=== PATIENT | male | born 1960 | race Caucasian/White ===

== ENCOUNTER 2021-01-08 09:47 | Inpatient (IN) ==
[2021-01-08] MEDS ORDERED: ASPIRIN CHEW 324 MG PO STA (09:55)
[2021-01-08] MEDS ORDERED: fentaNYL citrate 100 MCG/2 ML VIAL ONE ×2 (09:59→10:54)
[2021-01-08] MEDS ORDERED: niCARdipine HCL INJ 2.5 MG/ML 10 ML AMP ONE (09:59)
[2021-01-08] MEDS ORDERED: MIDAZOLAM HCL 1 MG/ML 2ML VIAL ONE ×3 (09:59→11:01)
[2021-01-08] MEDS ORDERED: HEPARIN (PORCINE) 1000 UNIT/ML 10 ML (CATH LAB USE ONLY) ONE ×2 (09:59→11:24)
--- NOTE | 2021-01-08 09:59 | Emergency Department Note ---
Impression & Plan ST elevation (STEMI) myocardial infarction, Chest pain ED Provider Note NAME: GAMA DICKINSON AGE: 60 SEX: M : 1960 ARRIVES VIA: Walk-In INFORMANT: Patient, ED PROVIDER(S): Bret Hoff DO CHIEF COMPLAINT: Chest pain HPI: The patient is a 60-year-old male who presented to the emergency department through triage for an evaluation of chest pain. The patient started having chest pain approxi-1 hour prior to arrival. The patient states that he has substernal chest pain that he describes as a pressure. He does have a history of cardiac disease and has had 5 stents approximately 6 years ago. The patient normally lives in [place] and is here for work. All of his cardiac work was done near his home in [place]. He states that he has had no problems with his cardiac condition since the stenting. He does have a history of a DVT which he was treated for. He had a procedure in September of last year which resulted in a DVT. He finished taking the Xarelto approximately 2 days ago. He denies having any shortness of breath. He denies having any lower extremity swelling or fever. He denies having any cough or exposure to COVID-19. The patient states his pain is approximately 7 out of 10 and worse with exertion. The patient did not take any medications for this pain prior to coming to the emergency department. Otherwise he states he has been compliant with his outpatient medication regimen. ROS: See above HPI for pertinent positives & negatives. A total of 10 systems reviewed and were otherwise negative. PAST MEDICAL HISTORY: See Below PAST SURGICAL HISTORY: See Below FAMILY HISTORY: See Below SOCIAL HISTORY: See Below HOME MEDICATIONS: See Below ALLERGIES: See Below VITALS: See Below PHYSICAL EXAMINATION: GENERAL: The patient is awake and alert. He is somewhat anxious appearing. EYES: The conjunctivae are clear. The pupils are round and reactive. EARS, NOSE, MOUTH AND THROAT: The nose is without any evidence of any deformity. NECK: The neck is nontender and supple. RESPIRATORY: Normal respiratory effort is noted there is no evidence of wheezing rhonchi or rales CARDIOVASCULAR: Regular rate and rhythm noted there no murmurs rubs or gallops normal S1 normal S2. GASTROINTESTINAL: The abdomen is soft. Abdomen is nontender. MUSCULOSKELETAL/EXTREMITIES: There is no evidence of gross deformity full range of motion is noted in the hips and shoulders. SKIN: There is no obvious evidence of any rash. There is no calf tenderness elicited. NEUROLOGIC: Patient is awake alert and oriented x3. MEDICAL DECISION MAKING: The patient is a 60-year-old male who presented to the emergency department for an evaluation of chest pain. The patient has a history of coronary artery disease and has had multiple coronary artery stents in the past. The patient started having anterior chest pain. He does have a history of coronary artery disease and is prescribed nitroglycerin but has never used it before so he did not feel comfortable using it. The patient presented to the emergency department and on his initial EKG was found to have findings consistent with an acute inferior wall MT. The patient was made a heart alert immediately. The patient was treated with aspirin in the emergency department. I discussed the patient's condition with him. He was agreeable to evaluation by the cover stitch machine operator. I discussed his case with the cover stitch machine operator who evaluated the patient at bedside and felt he was a good candidate for immediate cardiac catheterization. The patient was transferred directly to the Statistical Developer for further intervention. Triage Nursing notes reviewed. Prior medical records reviewed Vital Signs: reviewed and remarkable for no significant abnormalities Differential diagnosis: Cardiac ischemia, aortic dissection, pulmonary embolism, pneumothorax, pneumonia, pericarditis, myocarditis, esophageal rupture, GERD, cholecystitis, pancreatitis, musculoskeletal, as well as other pathologies. ER treatment provided: See below Diagnostics interpreted by me: ECG: EKG was obtained in the emergency department. My interpretation is normal sinus rhythm at 74 bpm. There was no ectopy. There was acute ST segment elevation in the inferior leads. There is also reciprocal changes in the high lateral leads. There is also ST depression noted in the anterior leads. I feel this is consistent with an inferior posterior wall MT. No previous tracing was available. Cardiac Monitoring: An order was placed for continuous cardiac monitoring. The monitor shows a rate of 89 bpm with sinus rhythm. Laboratory studies: As stated above and show below. Imaging studies: See below Consultation(s): 1005: Dr. Busby presented to the emergency department because of the heart alert. I discussed the patient's condition at bedside. 1040: I discussed this case with Dr. Baxter who is on-call for the [facility]. ED COURSE: Procedures: none PDMP:reviewed and no issues Critical Care: I have personally spent greater than 35 minutes of critical care time in the direct management of this patient. This includes bedside care, interpretation of diagnostic studies, and testing, discussion with consultants, patient, and family members, and other required patient management activities. This 35 minutes is in excess of all separately billable procedures. Past Med/Surg History Medical History DVT (deep venous thrombosis) High cholesterol Hypothyroid NSTEMI (non-ST elevated myocardial infarction) Surgical History History of ventral hernia repair Stented coronary artery Social History Smoking Status: Never smoker Hx Alcohol Use: Yes Alcohol type: hard liquor Alcohol Intake Frequency: 2-4 x/Month Hx Substance Use: No Preferred Language: Norwegian Communication Ability: Effective Silverware Supervisor Required: No Beliefs That Will Affect Care: None Current Living Situation: Significant Other Other Information That Helps Us Care for You: No Feels Safe at Home: Yes Assistive Devices: None Allergies Allergies Allergy/AdvReac Type Severity Reaction Status Date / Time No Known Allergies Allergy Unverified 05/19/20 10:33 Home Meds Home Medications Medication Instructions Recorded Confirmed aspirin [Aspir-81] 81 mg PO DAILY@149905/19/20 05/19/20 atorvastatin 40 mg PO DAILY@149905/19/20 05/19/20 metoprolol tartrate 25 mg PO DAILY@149905/19/20 05/19/20 Previous Rx's Medication Instructions Recorded acetaminophen-codeine 1 tab PO Q6H PRN #14 tab 05/19/20 [Tylenol-Codeine #3] Results & Data (ED) Vital Signs Vital Signs - 24 hr 01/08/21 09:50 01/08/21 12:30 Temperature 36.3 C L Temperature Source Temporal Artery Scan Pulse Rate 72 Pulse Rate [Apical] 103 H Pulse Rhythm [Apical] Regular Pulse Strength [Apical] Normal Respiratory Rate 18 16 Respiratory Depth Normal Respiratory Pattern Regular Blood Pressure 146/84 H Blood Pressure [Left Arm] 103/75 Blood Pressure Mean 104 Blood Pressure Mean [Left Arm] 84 Blood Pressure Position [Left Arm] Lying Pulse Oximetry 99 97 Oxygen Delivery Method Room Air Sepsis Recent Fever Within 48 Hours No Sepsis New/Unexplained Change in Mental Status N/A Sepsis Action Taken by Nursing No Action Required Home Medications Current Medication List: was personally reviewed by me Laboratory Data Attestation: I reviewed the patient's lab results. Result diagrams: 01/08/21 10:05 01/08/21 10:05 Lab Results 01/08/21 01/08/21 01/08/21 Range/Units 09:57 09:57 10:05 WBC 10.24 (4.8-10.8) K/uL RBC 5.18 (4.7-6.1) M/uL Hgb 15.0 (14.0-18.0) g/dL Hct 44.5 (42-52) % MCV 85.9 (80-100) fL MCH 29.0 (25-34) pg MCHC 33.7 (32-36) g/dL RDW Std Deviation 44.5 (36.4-46.3) fL RDW Coeff of Giovanni 14.0 (11.5-14.5) % Plt Count 274 (130-400) K/uL MPV 9.3 (7.4-10.4) fL Immature Gran % (Auto) 0.2 % Neut % (Auto) 39.9 % Lymph % (Auto) 43.8 % Sterling % (Auto) 13.0 % Eos % (Auto) 2.7 % Baso % (Auto) 0.4 % Neut # (Auto) 4.09 (1.4-6.5) K/uL Lymph # (Auto) 4.48 H (1.2-3.4) K/uL Sterling # (Auto) 1.33 H (0.11-0.59) K/uL Eos # (Auto) 0.28 (0-0.5) K/uL Baso # (Auto) 0.04 (0-0.2) K/uL Immature Gran # (Auto) 0.02 (0.00-0.02) K/uL Activ Coag Time Kaolin (94-140) SECONDS Sodium (136-145) mmol/L Potassium (3.5-5.1) mmol/L Chloride (98-107) mmol/L Carbon Dioxide (21-32) mmol/L Anion Gap (3-11) BUN (7-18) mg/dl Creatinine (0.6-1.4) mg/dl Est Cr Clr Drug Dosing ml/min Est GFR ( Amer) Est GFR (Non-Af Amer) BUN/Creatinine Ratio (10-20) Glucose (70-99) mg/dl Calcium (8.5-10.1) mg/dl Magnesium (1.8-2.4) mg/dl Total Bilirubin (0.2-1) mg/dl AST (15-37) U/L ALT (12-78) U/L Alkaline Phosphatase (45-117) U/L Total Creatine Kinase (39-308) U/L CK-MB (CK-2) (0.5-3.6) ng/ml CK/CKMB % Calc (0-3.0) Troponin I (0-0.045) ng/ml Total Protein (6.4-8.2) gm/dl Albumin (3.4-5.0) gm/dl Globulin (2.5-4.0) gm/dl Albumin/Globulin Ratio (0.9-2) Lipase (73-393) U/L TSH (0.300-4.500) uIu/ml Free T4 (0.8-1.6) ng/dl COVID-19 Eval Order [facility]Rsv at [facility] SARS-CoV-2 (PCR) NEGATIVE (Negative) Influenza Type A (PCR) Negative (Neg) Influenza Type B (PCR) Negative (Neg) RSV (RT-PCR) Negative (Neg) 01/08/21 01/08/21 01/08/21 Range/Units 10:05 10:40 11:47 WBC (4.8-10.8) K/uL RBC (4.7-6.1) M/uL Hgb (14.0-18.0) g/dL Hct (42-52) % MCV (80-100) fL MCH (25-34) pg MCHC (32-36) g/dL RDW Std Deviation (36.4-46.3) fL RDW Coeff of Giovanni (11.5-14.5) % Plt Count (130-400) K/uL MPV (7.4-10.4) fL Immature Gran % (Auto) % Neut % (Auto) % Lymph % (Auto) % Sterling % (Auto) % Eos % (Auto) % Baso % (Auto) % Neut # (Auto) (1.4-6.5) K/uL Lymph # (Auto) (1.2-3.4) K/uL Sterling # (Auto) (0.11-0.59) K/uL Eos # (Auto) (0-0.5) K/uL Baso # (Auto) (0-0.2) K/uL Immature Gran # (Auto) (0.00-0.02) K/uL Activ Coag Time Kaolin 279 H 252 H (94-140) SECONDS Sodium 136 (136-145) mmol/L Potassium 3.3 L (3.5-5.1) mmol/L Chloride 102 (98-107) mmol/L Carbon Dioxide 26 (21-32) mmol/L Anion Gap 8.0 (3-11) BUN 10 (7-18) mg/dl Creatinine 1.30 (0.6-1.4) mg/dl Est Cr Clr Drug Dosing 72.4 ml/min Est GFR ( Amer) 69.7 Est GFR (Non-Af Amer) 60.1 BUN/Creatinine Ratio 7.6 L (10-20) Glucose 147 H (70-99) mg/dl Calcium 9.5 (8.5-10.1) mg/dl Magnesium 2.1 (1.8-2.4) mg/dl Total Bilirubin 0.7 (0.2-1) mg/dl AST 24 (15-37) U/L ALT 33 (12-78) U/L Alkaline Phosphatase 113 (45-117) U/L Total Creatine Kinase 113 (39-308) U/L CK-MB (CK-2) 1.2 (0.5-3.6) ng/ml CK/CKMB % Calc 1.1 (0-3.0) Troponin I < 0.015 (0-0.045) ng/ml Total Protein 7.6 (6.4-8.2) gm/dl Albumin 3.9 (3.4-5.0) gm/dl Globulin 3.7 (2.5-4.0) gm/dl Albumin/Globulin Ratio 1.1 (0.9-2) Lipase 82 (73-393) U/L TSH 7.730 H (0.300-4.500) uIu/ml Free T4 1.07 (0.8-1.6) ng/dl COVID-19 Eval Order SARS-CoV-2 (PCR) (Negative) Influenza Type A (PCR) (Neg) Influenza Type B (PCR) (Neg) RSV (RT-PCR) (Neg) Administered Medications Sodium Chloride (Nss 1000ml) 1,000 mls @ 100 mls/hr IV .Q10H PLACIDO Stop: 01/08/21 20:14 Last Admin: 01/08/21 14:27 Dose: 100 mls/hr Documented by: [id number] Dopamine HCl/Dextrose (Dopamine / D5w) 400 mg in 250 mls @ 18.863 mls/hr IV .[id number] PLACIDO; Protocol Stop: 02/07/21 13:44 Last Admin: 01/08/21 14:27 Dose: 5 mcg/kg/min, 18.9 mls/hr Documented by: [id number] Cosigned by: [id number] Promethazine HCl 12.5 mg/ (Sodium Chloride) 50.5 mls @ 202 mls/hr IV Q6H PRN PRN Reason: Nausea And Vomiting Stop: 02/07/21 13:51 Last Admin: 01/08/21 14:42 Dose: 202 mls/hr Documented by: [id number] Discontinued Medications Aspirin (Aspirin Chew 324 Mg) 324 mg PO NOW STA Stop: 01/08/21 09:56 Last Admin: 01/08/21 10:04 Dose: 324 mg Documented by: [id number] Atropine Sulfate (Atropine Sulfate 0.1 Mg/Ml 10ml Syr) Confirm Administered Dose 1 mg IV .STK-MED ONE Stop: 01/08/21 10:23 Last Admin: 01/08/21 11:54 Dose: 0.5 mg Documented by: [id number] Dopamine HCl/Dextrose (Dopamine 400mg / 250ml D5w (Statistical Developer Use Only)) Confirm Administered Dose 400 mg .ROUTE .STK-MED ONE Stop: 01/08/21 10:49 Last Admin: 01/08/21 11:55 Dose: 5 mcg.per.kg Documented by: [id number] Fentanyl Citrate (Fentanyl Citrate 100 Mcg/2 Ml Vial) Confirm Administered Dose 100 mcg .ROUTE .STK-MED ONE Stop: 01/08/21 10:00 Last Admin: 01/08/21 11:59 Dose: 150 mcg Documented by: [id number] Fentanyl Citrate (Fentanyl Citrate 100 Mcg/2 Ml Vial) Confirm Administered Dose 100 mcg .ROUTE .[facility]-MED ONE Stop: 01/08/21 10:55 Last Admin: 01/08/21 11:55 Dose: Not Given Documented by: [id number] Heparin Sodium (Porcine) (Heparin (Porcine) 1000 Unit/Ml 10 Ml (Statistical Developer Use Only)) Confirm Administered Dose 10,000 units .ROUTE .[facility]-MED ONE Stop: 01/08/21 10:00 Last Admin: 01/08/21 11:58 Dose: 12,000 units Documented by: [id number] Heparin Sodium (Porcine) (Heparin (Porcine) 1000 Unit/Ml 10 Ml (Statistical Developer Use Only)) Confirm Administered Dose 10,000 units .ROUTE .[facility] ONE Stop: 01/08/21 11:25 Last Admin: 01/08/21 11:55 Dose: Not Given Documented by: [id number] Heparin Sodium/Sodium Chloride (Heparin In Nss Infusion 1000 Unit/500 Ml (2 U/Ml) Bag) Confirm Administered Dose 3,000 units IV .[facility] ONE Stop: 01/08/21 10:01 Last Admin: 01/08/21 11:54 Dose: 3,000 units Documented by: [id number] Midazolam HCl (Midazolam Hcl 1 Mg/Ml 2ml Vial) Confirm Administered Dose 2 mg .ROUTE .[facility] ONE Stop: 01/08/21 10:00 Last Admin: 01/08/21 11:58 Dose: 5 mg Documented by: [id number] Midazolam HCl (Midazolam Hcl 1 Mg/Ml 2ml Vial) Confirm Administered Dose 2 mg .ROUTE .[facility] ONE Stop: 01/08/21 10:36 Last Admin: 01/08/21 11:56 Dose: Not Given Documented by: [id number] Midazolam HCl (Midazolam Hcl 1 Mg/Ml 2ml Vial) Confirm Administered Dose 2 mg .ROUTE .[facility]-MED ONE Stop: 01/08/21 11:02 Last Admin: 01/08/21 11:55 Dose: Not Given Documented by: [id number] Nicardipine HCl (Nicardipine Hcl Inj 2.5 Mg/Ml 10 Ml Amp) Confirm Administered Dose 25 mg .ROUTE .[facility]-MED ONE Stop: 01/08/21 10:00 Last Admin: 01/08/21 11:54 Dose: 25 mg Documented by: [id number] Nitroglycerin/Dextrose (Nitroglycerin/D5w 100mcg/Ml 20ml Syr) Confirm Administered Dose 2,000 mcg .ROUTE .[facility] ONE Stop: 01/08/21 10:01 Last Admin: 01/08/21 11:54 Dose: 2,000 mcg Documented by: [id number] Ondansetron HCl (Ondansetron Inj 2 Mg/Ml 2 Ml Vial) Confirm Administered Dose 4 mg .ROUTE .[facility] ONE Stop: 01/08/21 12:38 Last Admin: 01/08/21 12:39 Dose: 4 mg Documented by: [id number] Ticagrelor (Ticagrelor 90 Mg Tab) Confirm Administered Dose 180 mg PO .[facility] ONE Stop: 01/08/21 12:08 Last Admin: 01/08/21 14:31 Dose: Not Given Documented by: [id number] Discharge Plan Visit Data Chief Complaint: Chest Pain Stated Complaint: CHEST PAIN, NAUSEA, SWEATING, Hx OF STENTS ED Provider: Bret Hoff Discharge Problem: ST elevation (STEMI) myocardial infarction, Chest pain Patient Disposition: Admitted As Inpatient Condition: Good Discharge Instructions Interventions: ED Discharge Assessment Last Done: 01/08/21 10:16 Discharge Problem: ST elevation (STEMI) myocardial infarction Qualifiers: Involved coronary artery: unspecified coronary artery Qualified Code(s): I21.3 - ST elevation (STEMI) myocardial infarction of unspecified site Chest pain Qualifiers: Chest pain type: unspecified Qualified Code(s): R07.9 - Chest pain, unspecified
[2021-01-08] MEDS ORDERED: NITROGLYCERIN/D5W 100MCG/ML 20ML SYR ONE (10:00)
[2021-01-08 10:14] LABS: Basophils # (auto) 0.04 K/uL (0-0.2); Basophils % (auto) 0.4 %; Eosinophils # (auto) 0.28 K/uL (0-0.5); Eosinophils % (auto) 2.7 %; Hematocrit (blood only) 44.5 % (42-52); Immature Granulocytes # (auto) 0.02 K/uL (0.00-0.02); Immature Granulocytes % (auto) 0.2 %; Lymphocytes # (auto) 4.48 K/uL (1.2-3.4); Lymphocytes % (auto) 43.8 %; Mean Corpuscular Hgb Conc 33.7 g/dL (32-36); Mean Corpuscular Volume 85.9 fL (80-100); Mean Platelet Volume 9.3 fL (7.4-10.4); Monocytes # (auto) 1.33 K/uL (0.11-0.59); Neutrophils # (auto) 4.09 K/uL (1.4-6.5); Neutrophils % (auto) 39.9 %; Platelet Count 274 K/uL (130-400); RDW Standard Deviation 44.5 fL (36.4-46.3); Red Blood Count 5.18 M/uL (4.7-6.1); White Blood Count 10.24 K/uL (4.8-10.8)
[2021-01-08] MEDS ORDERED: ATROPINE SULFATE 0.1 MG/ML 10ML SYR IV ONE (10:22)
[2021-01-08 10:33] LABS: Alanine Aminotransferase 33 U/L (12-78); Albumin Level 3.9 gm/dl (3.4-5.0); Aspartate Aminotransferase 24 U/L (15-37); BUN Creatinine Ratio 7.6 (10-20); Blood Urea Nitrogen 10 mg/dl (7-18); Calcium 9.5 mg/dl (8.5-10.1); Carbon Dioxide 26 mmol/L (21-32); Chloride 102 mmol/L (98-107); Creatinine Clr Calc Pharmacy 72.4 ml/min; Est GFR (African American) 69.7; Est GFR (Non-African American) 60.1; Glucose 147 mg/dl (70-99); Lipase 82 U/L (73-393); Magnesium 2.1 mg/dl (1.8-2.4); Potassium 3.3 mmol/L (3.5-5.1); Sodium 136 mmol/L (136-145)
[2021-01-08 10:44] LABS: Albumin Globulin Ratio 1.1 (0.9-2); Alkaline Phosphatase 113 U/L (45-117); Bilirubin,Total 0.7 mg/dl (0.2-1); Creatine Kinase 113 U/L (39-308); Creatine Kinase MB 1.2 ng/ml (0.5-3.6); Globulin 3.7 gm/dl (2.5-4.0); Total Protein 7.6 gm/dl (6.4-8.2); Troponin I < 0.015 ng/ml (0-0.045)
[2021-01-08 10:45] LABS: Influenza A virus by PCR Negative (Neg); Influenza B virus by PCR Negative (Neg); RSV by PCR Negative (Neg); SARS CoV2 RNA(COVID-19) InHosp NEGATIVE (Negative)
[2021-01-08] MEDS ORDERED: DOPamine 400MG / 250ML D5W (Cath Lab Use ONLY) ONE (10:48)
--- NOTE | 2021-01-08 10:49 | History & Physical Report ---
Date of Service January 08, 2021 Assessment & Plan (1) ST elevation (STEMI) myocardial infarction: Patient was taken from the ER directly to the Assistant Professor Of Music where he appears to have complete occlusion of the right coronary artery intervention undertaken by Dr. Enrico Busby post procedure will be ICU. Patient continue on antiplatelet therapy (Brilinta and aspirin per Dr Busby) And atorvastatin. Blood pressure prohibits initiation of beta-luis this will be started on this clinically as possible For now patient is on low-dose dopamine post procedure expected off once his blood pressure stabilizes. Patient will have A1c and lipids checked trending troponins echocardiography (2) Hypokalemia: will give K riders, and give a dose of magnesium check magnesium in the morning 11-year-old female (3) DVT prophylaxis: once out of post pci protocol, will consider chemoprophylaxis History of Present Illness Primary Care Provider: Pt is from out of town he presented as a heart alert chest pain 1 hour prior to arrival and having inferior ST elevation., was taken emergently to the laborer vegetable farm for concern for IWMI, initial troponin was negative. Patient has known coronary disease with significant stents x5 6 years prior. Patient is here for work he usually lives in [place]. Judy that DVT post procedure finishing 2 months of Xarelto therapy 2 days prior. Pt did require some post procedure dopamine to sustain blood pressure. otherwise he has some nausea. Allergies Allergy/AdvReac Type Severity Reaction Status Date / Time No Known Allergies Allergy Unverified 05/19/20 10:33 Home Medications Medication Instructions Recorded Confirmed Type acetaminophen-codeine 1 tab PO Q6H PRN #14 tab 05/19/20 Rx [Tylenol-Codeine #3] aspirin [Aspir-81] 81 mg PO DAILY@1500 05/19/20 05/19/20 History atorvastatin 40 mg PO DAILY@1500 05/19/20 05/19/20 History metoprolol tartrate 25 mg PO DAILY@1500 05/19/20 05/19/20 History Past Med/Surg History Medical History DVT (deep venous thrombosis) High cholesterol Hypothyroid NSTEMI (non-ST elevated myocardial infarction) Surgical History History of ventral hernia repair Stented coronary artery Social History Smoking Status: Never smoker Hx Alcohol Use: Yes Alcohol type: hard liquor Alcohol Intake Frequency: 2-4 x/Month Hx Substance Use: No Preferred Language: Greek Communication Ability: Effective Dope Heater Required: No Beliefs That Will Affect Care: None Current Living Situation: Significant Other Other Information That Helps Us Care for You: No Feels Safe at Home: Yes Assistive Devices: None Review of Systems Review of Systems: Mild distress and fatigue no headache, blurry or double vision no speech or swallowing issues Prehospital chest pain no shortness of breath, cough or wheezes no abdominal pain,does have mild nausea without vomiting no dysuria, hematuria or frequency no focal joint pain or swelling no back pain, CVA tenderness or radicular pain no bruising, bleeding or rashes no focal signs of weakness or numbness or altered sensation no complaints of anxiety or depression.. Physical Exam Physical Exam: The patient appeared well nourished and normally developed. Vital signs as documented. Head exam is normocephalic atraumatic no scleral icterus Neck is without JVD, thyromegaly, or carotid bruits. Lungs are clear to auscultation, no focal loss of breath sounds Cardiac exam, Rhythm is regular.. No murmurs, rubs or gallops. Abdominal exam reveals normal bowel sounds, soft non tender, no masses Extremities are with the T band in place on his right hand there is some bruising to his thenar eminence there is good sensation and capillary refill distally Neurologic exam is alert and oriented, no focal loss of strength or sensation Skin is with only bruises as described above Psychologically is without concerns for anxiety or depression Results & Data Results & Data ([facility]) Vital Signs (Past 12 Hours) Vital Signs Temp Pulse Resp BP Pulse Ox 01/08/21 09:50 97.3 F L 72 18 146/84 H 99 PG Care Time/CCT Total # of Minutes Spent Total Time Spent with Patient: Total time spent is greater than 50% in coordination of care (as documented) at patient's floor/unit and/or counseling patient: Coding Level of Care Code 57559 Initial Inpt Care Lvl [address] elevation (STEMI) myocardial infarction I21.3 Hypokalemia E87.6 DVT prophylaxis Z29.9
[2021-01-08 10:56] LABS: T4 Free Thyroxine 1.07 ng/dl (0.8-1.6)
[2021-01-08] MEDS ORDERED: TICAGRELOR 90 MG TAB PO ONE (12:07)
[2021-01-08] MEDS ORDERED: ONDANSETRON INJ 2 MG/ML 2 ML VIAL ONE (12:37)
[2021-01-08] MEDS ORDERED: ICU PROTOCOL FOR HYPERGLYCEMIA PRN ×2 (12:40→13:37)
[2021-01-08] MEDS ORDERED: NITROGLYCERIN SL 0.4 MG/TAB TAB SL PRN (12:40)
[2021-01-08] MEDS ORDERED: ACETAMINOPHEN 325 MG TAB PO PRN (12:40)
[2021-01-08] MEDS ORDERED: ONDANSETRON INJ 2 MG/ML 2 ML VIAL IV PRN (12:40)
[2021-01-08] MEDS ORDERED: SODIUM CHLORIDE 0.9% 1000ML 1,000 ML IV SCH (12:45)
[2021-01-08] MEDS ORDERED: STAT IV Infusion **Titration per Protocol STA ×2 (12:50→13:37)
--- NOTE | 2021-01-08 12:52 | Pre Anesthesia Assessment ---
Date of Service January 08, 2021 Pre Sedation Assessment Vital Signs Temp Pulse Resp BP Pulse Ox 01/08/21 09:50 97.3 F L 72 18 146/84 H 99 Cardiovascular RRR, no murmur, no edema Respiratory normal respiratory effort, lungs clear to auscultation Pre-Sedation Airway Assessment Smoking Status: Never smoker Hx Sleep Apnea: No Hx Difficult Intubation: No Short, Thick Neck: No Thyromental Distance: > or= 3.5 Finger Breadths Oral Cavity: + WNL Mallampati Class: III ASA: ASA3 Procedure Planning Contraindications for Sedation: none Current Medications Reviewed: Yes Notes The planned sedation has been discussed with the patient. Informed Consent was obtained. I have identified the patient, determined the appropriateness of sedation and have assessed the patient immediately prior to the procedure. All medicine(s) and interventions are by my order.
--- NOTE | 2021-01-08 12:52 | Post Anesthesia Assessment ---
Date of Service January 08, 2021 Post Sedation Assessment Vital Signs Temp Pulse Pulse Resp BP BP Pulse Ox 01/08/21 12:30 103 H 16 103/75 97 01/08/21 09:50 97.3 F L 72 18 146/84 H 99 Recovery Score Activity: Moves 4 extremities Respiration: Deep Breath/Cough Circulation: +/-20% PreAnes Value Consciousness: Fully Awake Oxygen Saturation: > 92% On Room Air Post Anesthesia Score: 10 Discharge Sedation Level of Care: Fast Track Phase II Post Sedation Plan On clinical assessment, the patient appears to have tolerated the sedation without complications. Patient is recovering as anticipated. Patient will continue to be monitored by nursing and may be discharged when sedation discharge criteria are met per below protocol. Upon Completions of procedure up to 15 minutes continue every 5 minute vital signs and the P.A.R. score; then discharge to a Phase I or Fast Track to Phase II per the following guidelines: * Discharge Patient to appropriate Phase II area if PAR is 8 or greater or return to pre- procedure baseline. The post - procedure orders will be as directed. * If PAR score is less than 8 or not return to pre-procedure baseline then patient will follow Phase I monitoring till PAR is reached for Phase II. The Phase I may be done in procedure room or may call to secure a Phase I area. * If naloxone or flumazenil are used for reversal, hold in Phase I for con tinued monitoring from when last reversal dose was given for a minimum of 60 minutes or longer pending the nurse and/or physician discretion of patient condition before discharge to Phase II. Please call the Sedation Physician to re-evaluate and complete post-note for discharge to Phase II area. Do NOT discharge from procedure sedation or Phase 1 until post- sedation evaluation note is complete by procedure /sedation MD Sedation Discharge Instructions to be given to the patient at discharge to home.
--- NOTE | 2021-01-08 12:55 | Post Operative Brief Note ---
Cardiology Brief Post Op Date of Surgery January 08, 2021 Pre & Post Diagnosis Coronary artery disease Procedure Primary PCI for inferior STEMI Director Of Distance Learning Enrico Busby MD Thread Milling Machine Set Up Operator Madeleine Marin Estimated Blood Loss 30 Findings Consistent with Post-Op Diagnosis Distal RCA occlusion, in-stent thrombosis 70% proximal to mid calcified RCA LM - no significant disease LAD - 50-60% proximal stent in-stent restenosis, 50% mid segment disease extending into proximal aspect of prior mid stent. LCx - 40% mid Procedure complicated by proximal to mid RCA dissection and thrombus to proximal R-PDA. Transient hypotension requiring dopamine. Successful PCI of proximal to mid RCA with single MARBIN (3.5 x 38 [place]; post- dilated with 4.0 NC). Successful PCI of distal RCA in-stent thrombosis with single MARBIN (3.0 x 22 [place]). Fluids -- Specimens Specimen Description: -- Anesthesia Type RN Sedation Complications none Disposition Accompanied Patient To Recovery: Yes Disposition: Recovery Room Overlapping Procedure I was present for: the critical portions of procedure. I was immediately available: during the entire case. Back up surgeon: was not required during procedure.
[2021-01-08] MEDS ORDERED: METOPROLOL TARTRATE 1 MG/ML VIAL IV PRN (13:37)
[2021-01-08] MEDS ORDERED: DOPamine / D5W 400 MG/250 ML BAG IV SCH (13:37)
[2021-01-08] MEDS ORDERED: MoRPHine SULFATE 2 MG/ML CARP IV PRN (13:37)
[2021-01-08] MEDS ORDERED: POTASSIUM CHLORIDE 10 MEQ / 100ML WTR IV STA (13:52)
[2021-01-08] MEDS ORDERED: PROMETHAZINE HCL 12.5 MG in SODIUM CHLORIDE 0.9% 50 ML IV PRN (13:52)
--- NOTE | 2021-01-08 14:10 | Critical Care Consultation ---
Date of Consultation January 08, 2021 Assessment & Plan (1) ST elevation (STEMI) myocardial infarction: Reason Critically Ill: 60-year-old male with PMHx significant for CAD (s/p PCI x5, six years ago) as well as recent DVT, admitted for acute inferior STEMI, transferred to the ICU non 01/08/2021 after PCI with DESx2 to RCA for close hemodynamic monitoring. Neuro - - CAM ICU: NEGATIVE - patient is A+Ox3 Cardiac - - inferior STEMI - s/p PCI with DESx2 to RCA (DESx1 in proximal-mid RCA, DESx1 in distal RCA in-stent thrombosis) - proximal-mid RCA dissection and thrombus to proximal R-PDA during procedure - patient had transient hypotension requiring Dopamine - post-op TTE pending - currently hemodynamically stable, maintaining MAP>65 without pressors - continue NS @100cc/hr - Dopamine gtt as needed for hypotension - continue DAPT with Aspirin/Brilinta - continue Atorvastatin, Lopressor 12.5mg PO BID, continue to optimize medications as tolerated - trend Troponin to peak - lipid panel/A1c in the AM - serial EKGs - QTc 437 - strict I/Os Respiratory - - no h/o lung disease, satting >95% on room air - supplemental O2 as needed via nasal cannula GI - - heart-healthy diet - Promethazine 12.5mg IV Q6H for nausea/vomiting RENAL/LYTES - - K 3.3, Mg 2.1 - repleted - No other significant electrolyte derangement - Renal function intact - Replace lytes as needed - - No concerns at this time ENDO - - no h/o diabetes, A1c in the AM as mentioned above - no h/o hypothyroidism, TSH 7.7 but T4 WNL - subclinical hypothyroidism - recommend f/u TSH as outpatient HEME - - h/o DVT - recently stopped Xarelto 2 days ago, INR 1.2 - PTT 128.1 s/p Heparin gtt, currently on DAPT with Aspirin/Brilinta - Stable H&H - monitor CBC ID - - No concerns for infection at this point - Monitor fever curve LINES/IV ACCESS - PIVx2 intact. DVT PROPHYLAXIS - - Aspirin/Brilinta as mentioned above CODE STATUS: full code Thank you for allowing us to be part of this patient's care. Please refer to Dr. Hull's documentation for any further recommendations. (2) DVT prophylaxis: (3) Hypokalemia: Supervising Physician Co-Signing Physician Notes Dr Aleman was the resident-physician during care of patient. I separately evaluated patient for boswell portions of the history and the exam. I was present during the critical portion of medical decision making, and I discussed the case with the resident. I generally agree with the findings and plan except for any additions/exceptions noted. Patient seen and examined at bedside. No acute distress, no adverse events overnight. Patient girlfriend was in the room at the time of examination. He denied any chest pain. States that he is feeling better. He did have an episode of nausea and he threw up. Nonbilious nonbloody. He felt better after he did that. Denies any dizziness, no shortness of breath. Patient is a lifetime non-smoker. Patient had 2 stents placed in RCA. There was a proximal mid RCA dissection. He did have post-cath TTE which did not show any pericardial effusion. Continue with Brilinta, aspirin. Statin. Monitor for hemodynamics. Pain management. Hypokalemia is being replaced. Please note the above document was generated using voice recognition software. It may contain grammatical, syntax or spelling errors.Any formal questions or concerns about the content, text or information contained within the body of this dictation should be directly addressed to the provider for clarification. History of Present Illness Reason for Consultation: hemodynamic monitoring after cardiac cath Requesting Physician: Enrico Busby MD Attending Physician: Enrico Busby MD History of Present Illness Mr. Ramirez is a 60 yo male with PMHx significant for CAD (reportedly had PCI with several stents 6 years ago) and DVT in 09/2020 (finished taking Xarelto 2 days ago) who presented to [facility] ED for acute-onset substernal chest pain 1 hour prior to arrival. He is s/p PCI with 2 stents placed in RCA (DESx1 in proximal-mid RCA, DESx1 in distal RCA in-stent thrombosis). Of note, procedure was complicated by proximal-mid RCA dissection and thrombus to proximal R-PDA - pa tient had transient hypotension requiring Dopamine. He was transferred to the ICU for close hemodynamic monitoring s/p PCI. The patient reports doing well since the conclusion of the procedure. He reports 1/10 chest pressure that he says is similar in character to presenting chest pain, although almost completely resolved. Patient is not bothered by this pressure. He is also nauseous but w/o vomiting. Denies current headache, fever/chills, palpitations, syncope, near-syncope, shortness of breath, abdominal pain. Patient denies significant PMHx other than CAD and DVT, stated above. Denies family h/o HTN, diabetes, heart disease. Denies current or past smoking, has 1-2 drinks per month, denies other drug use. Patient normally lives in [place] and is here for work. Allergies Allergy/AdvReac Type Severity Reaction Status Date / Time No Known Allergies Allergy Unverified 05/19/20 10:33 Home Medications Medication Instructions Recorded Confirmed Type aspirin [Aspir-81] 81 mg PO DAILY@1500 05/19/20 01/08/21 History atorvastatin 40 mg PO DAILY@1500 05/19/20 01/08/21 History metoprolol tartrate 25 mg PO DAILY@1500 05/19/20 01/08/21 History omeprazole magnesium [Prilosec OTC] 20 mg PO DAILY PRN 01/08/21 01/08/21 History Patient History Medical History DVT (deep venous thrombosis) High cholesterol Hypothyroid NSTEMI (non-ST elevated myocardial infarction) Surgical History History of ventral hernia repair Stented coronary artery Social History Smoking Status: Never smoker Hx Alcohol Use: Yes Alcohol type: hard liquor Alcohol Intake Frequency: 2-4 x/Month Hx Substance Use: No Preferred Language: Norwegian Communication Ability: Effective 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 NAD. Cooperative. HEENT: Atraumatic, normocephalic. Pulm: CTAB A&P. -wheezes, -rales, -rhonchi. Symmetrical chest rise. No increase work of breathing. No respiratory distress. Cardiac: RRR, -mrg. Radial pulses intact and symmetrical. Abdominal: soft, non-tender, non-distended, BS x 4 Skin: right radial arterial cath insertion site with overlying dressing c/d/i. No bruit. Skin: no rashes, warm and dry Lymphatic: no cervical or axillary lymphadenopathy Results & Data Results & Data ([facility]) Vital Signs (Past 12 Hours) Vital Signs Temp Pulse Pulse Resp BP BP Pulse Ox 01/08/21 13:00 93 H 16 111/74 97 01/08/21 12:45 89 16 110/73 97 01/08/21 12:30 103 H 16 103/75 97 01/08/21 09:50 36.3 C L 72 18 146/84 H 99 01/08/21 10:05 01/08/21 10:05 Resident Activity Tracking Resident Involvement: Resident Care Provided Care Provided: Adult [facility]
[2021-01-08] MEDS ORDERED: MAGNESIUM SULFATE / D5W 1 GM/100 ML BAG IV ONE (14:18)
[2021-01-08 14:24] LABS: INR 1.2 (0.9-1.1); Partial Thromboplastin Ratio 4.9; Prothrombin Time 11.6 Seconds (9.0-12.0)
[2021-01-08] MEDS: DOPamine / D5W 400 MG/250 ML BAG IV SCH (14:27)
[2021-01-08 14:38] LABS: Partial Thromboplastin Time 128.1 Seconds (21.0-31.0)
[2021-01-08] MEDS: POTASSIUM CHLORIDE / WTR 10 MEQ/100 ML PLCT IV SCH ×3 (15:11→17:20)
--- NOTE | 2021-01-08 16:43 | Electrocardiogram Report ---
Test Reason : Blood Pressure : / mmHG Vent. Rate : 074 BPM Atrial Rate : 074 BPM P-R Int : 124 ms QRS Dur : 086 ms QT Int : 400 ms P-R-T Axes : 023 046 086 degrees QTc Int : 444 ms Normal sinus rhythm ST elevation consider inferior injury or acute infarct ACUTE ND / STEMI Consider right ventricular involvement in acute inferior infarct Abnormal ECG No previous ECGs available Confirmed by Enrico Lyman ([id number]) on 01/08/2021 4:42:23 PM Referred By: REFERRED SELF Confirmed By:Samson Lyman
--- NOTE | 2021-01-08 16:45 | Electrocardiogram Report ---
Test Reason : Blood Pressure : / mmHG Vent. Rate : 089 BPM Atrial Rate : 089 BPM P-R Int : 142 ms QRS Dur : 084 ms QT Int : 384 ms P-R-T Axes : 037 -05 036 degrees QTc Int : 467 ms Normal sinus rhythm Inferior infarct , possibly acute ACUTE [place] / STEMI Consider right ventricular involvement in acute inferior infarct Abnormal ECG When compared with ECG of 08-JAN-2021 09:54, (unconfirmed) Inferior infarct is now Present T wave amplitude has increased in Lateral leads Confirmed by Enrico Lyman ([id number]) on 01/08/2021 4:45:28 PM Referred By: REFERRED SELF Confirmed By:Samson Lyman
--- NOTE | 2021-01-08 16:46 | Electrocardiogram Report ---
Test Reason : Blood Pressure : / mmHG Vent. Rate : 074 BPM Atrial Rate : 074 BPM P-R Int : 138 ms QRS Dur : 080 ms QT Int : 394 ms P-R-T Axes : 032 -01 022 degrees QTc Int : 437 ms Normal sinus rhythm with sinus arrhythmia Possible Left atrial enlargement possible Inferior infarct (cited on or before 08-JAN-2021) Abnormal ECG When compared with ECG of 08-JAN-2021 13:02, (unconfirmed) No significant change was found Confirmed by Enrico Lyman ([id number]) on 01/08/2021 4:45:54 PM Referred By: REFERRED SELF Confirmed By:Samson Lyman
--- NOTE | 2021-01-08 16:54 | XCELERA ---
[id number]
--- NOTE | 2021-01-08 18:21 | Cardiac Catheterization ---
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 Cardiac Status Clinical evaluation leading to the procedure CAD Presenation: STEMI Anginal Classification: CCS IV Heart Failure: No Cardiogenic Shock within 24 Hours: No Cardiac Arrest within 24 Hours: No Imaging Studies Past 6 Months: No Stress Studies Past 6 Months: No Diagnostic Physicians Name: Enrico Busby MD Status: Emergency Closure Device Percutaneous Entry Location: Radial Closure Device: Radial Band Recommendations: PCI without planned CABG PCI Indication: Immediate PCI for STEMI First Noted: First EKG Lesion Segment Name: distal RCA Culprit Artery: Yes Stenosis Prior to Rx (%): 100 Chronic Total Occlusion: No IVUS: No FFR: No Pre-Procedure CARLOTTA Flow: 0 Previously Treated Lesion: Timeframe: greater than 2 years In-Stent Thrombosis: Yes Yes Lesion Complexity: High/C Lesion Length (mm): 20 Thrombus Present: Yes Bifurcation Lesion: No Guidewire Across Lesion: Stenosis Post-Procedure (%): 0 Post-Procedure CARLOTTA Flow: 3 Devices(s) Deployed: Yes Yes Intraprocedure Events Significant Disection: No Perforation: No Cardiac Cath Procedure Full Procedure Date January 08, 2021 Pre-Procedure Diagnosis Pre-Procedure Diagnosis: STEMI AUC Score AUC Score: 9 Post-Procedure Diagnosis Post-Procedure Diagnosis: Severe CAD, Successful PCI and Normal Intracardiac Pressures Procedure(s) Performed Procedure(s) Performed: Coronary Angiography, Left Heart Cath, Drug Eluting Stent and IVUS Management Development Specialist Enrico Busby MD Hand Candy Cutter(s) Madeleine Marin Estimated Blood Loss Estimated Blood Loss: 30 Medication(s) Medication(s): Fentanyl, Heparin, Lidocaine 1%, Nicardipine, Nitroglycerin and Versed Medication(s): Ticagrelor Summary of Findings Indication: STEMI/Heart Alert Access: 6 Fr right radial artery Catheters: Ikari left 3.5 guide, JR4 guide, telescope support catheter, pigtail Findings: LM -normal caliber, 20% distal LAD -medium caliber, 50 to 60% proximal in-stent restenosis, 50% earlymid segment disease extending into proximal aspect of mid segment stent, distal vessel with luminal regularities wraparound apex. Medium caliber high D1 without significant disease. Faint ruya-[id number]-xwcoo collaterals to right PLB Circumflex -medium caliber, retrograde takeoff, 40% mid segment disease, no significant disease in remainder vessel RCA -large caliber, dominant, 30% proximal, calcified 70% earlymid stenosis, mid segment stent with mild in-stent restenosis, 100% occlusion/stent thrombosis of distal segment stent. LVEDP - 14 -- PCI -- Antithrombotic therapy: Heparin, ticagrelor Procedure: RCA cannulated with Ikari left 3.5 guide [employer] 50 wire passed across lesion into distal right PLB Distal RCA in-stent lesion predilated with 2.5 compliant balloon Proximal/mid RCA lesion dilated with 2.5 balloon Telescope support catheter placed Attempted to pass IVUS catheter but unable to pass proximal/mid RCA calcified stenosis Distal RCA in-stent lesion and proximal/mid segment lesion dilated with 3.0 balloon Still unable to pass stent more distally and with attempts wire and catheter backed out back across lesion Ikari left guide switched for JR4 guide Noted to have significant proximal/mid RCA dissection. With dissection had mid segment occlusion and CARLOTTA 0 flow Significant difficulty passing wire into the true lumen. Eventually able to pass new whisper wire into true lumen through stent struts and into distal PDA Proximal/mid dissected segment and distal in-stent segment redilated with 2.5 balloon 3.5 x 38 mm [place] placed from proximal RCA to mid RCA overlapping proximal aspect of prior stent Stent postdilated with 3.5 NC balloon With the aid of telescope support catheter 3.0 x 22 Skyler drug-eluting stent placed in distal segment overlapping prior stent and extending to just before takeoff of PDA. [place] IVUS pullback revealed underexpanded proximal stent but no proximal edge complication. No significant disease involving ostium. Noted to have acute occlusion of proximal PDA. Gently ballooned with 2.0 balloon with reestablished flow Stents post-dilated with 4.0 noncompliant balloon IC vasodilators administered for spasm Post procedure CARLOTTA 3 flow in stents and into PDA, PLB, stents well expanded with minimal residual stenosis and no apparent cardiac complications. Cardiac course complicated by transient hypotension requiring IV fluid bolus in dopamine infusion. Arterial Closure: TR band Summary: 1. Inferior STEMI 2. 70% calcified proximal to mid RCA stenosis, 100% distal in-stent occlusion/thrombosis 3. Moderate non-culprit vessel coronary artery disease - 50 to 60% proximal LAD in-stent restenosis, 50% mid LAD disease extending into mid segment 40% mid circumflex 4. Transient cardiogenic shock requiring pressors 5. Normal intracardiac filling pressure 5. Successful PCI of proximal to mid RCA with 3.5 x 38 mm Lake drug-eluting stent overlapping with proximal aspect of prior mid segment stent (postdilated with 4.0 NC). 6. Successful PCI of distal RCA stent thrombosis with 3.0 x 22 mm Skyler drug- eluting stent overlapping prior stent. 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 Consider extended therapy in the setting of multivessel disease and overlapping stents Trend troponins until peak, Check Echo Wean dopamine and start low-dose beta-luis, MARIANNE as BP allows High-dose statin Continue medical management of moderate LAD disease. Hemodynamics Rest Ao:: 119/63/103 Final Ao: 109/52/53 LV: 104/14 Recommendations Recommendations: PCI without planned CABG Specimens Specimens: None Radiation Exposure (mGy) 7570 Contrast (mls) 125 Fluids (cc crystalloids) Fluids (cc crystalloids): 1000 Drains Drains: none Anesthesia moderate 9250-9340 Procedural Complication(s) None Disposition ICU I attest to the content of the Intraoperative Record and any orders documented therein. Any exceptions are noted below. [facility] Card Cath Procedure Codes Cardiac Catheterization Procedure 1: Cardiovascular Cath Procedures: 30673 Coronaries and LHC (+/-LV) Therapeutic Services & Ancillary Proc Procedure 1: Cardiovascular Tx and Anc Procedures: 78091 IV Ultrasound (Coronary or Graft) Moderate Sedation Procedure 1: Sedation/Anesthesia: 61123 Mod Sedation by the same physician;Init15 Min Child Age 5 & Up Procedure 2: Sedation/Anesthesia: 39227 Mod Sedation by the same physician; Ea [id number] Minutes Stenting Procedure 1: Cardiovascular Stent Procedures: 63461 Perc transluminal revascularization of acute sub/total occl, aMI PG Care Time/CCT Total # of Minutes Spent Total Time Spent with Patient: Total time spent is greater than 50% in coordination of care (as documented) at patient's floor/unit and/or counseling patient:
[2021-01-08] MEDS: METOPROLOL TARTRATE 25 MG TAB PO SCH (20:27)
--- NOTE | 2021-01-08 20:49 | Billing Data ---
Date of Service January 08, 2021 Coding Level of Care Code 99020 Initial Inpt Care Lvl 3
[2021-01-08] MEDS ORDERED: TICAGRELOR 90 MG TAB PO SCH (21:00)
--- NOTE | 2021-01-08 21:17 | Cardiology Consultation ---
Date of Consultation January 08, 2021 Assessment & Plan (1) ST elevation (STEMI) myocardial infarction: Presentation consistent with inferior STEMI and recommend proceeding with emergent cardiac catheterization and likely primary PCI. No apparent contraindications to procedure. Discussed risks, benefits, alternatives of procedure with patient and they are willing to proceed. Further recommendations pending findings of coronary angiography. History of Present Illness Attending Physician: Enrico Busby MD History of Present Illness 60-year-old man here with acute chest pain and ECG concerning for acute TN. Patient seen emergently in the ED after heart alert activated on arrival. Past cardiac history remarkable for premature CAD post multiple prior stents, last more than 5 yrs ago. Per patient CABG previously discussed prior to stenting. All cardiac care in [place]. Cardiac risk factors include hypertension, dyslipidemia. Other medical issues include GERD, hypothyroidism and prior provoked DVT for which anticoagulation discontinued 2 days ago. Chest pain began approximately 8:30 AM, ~90 min prior to arrival while at rest. Describes chest heaviness with associated nausea, diaphoresis reminiscent of prior angina. On arrival 7/10 chest pain. Hemodynamically stable. EKG showed sinus rhythm with inferior ST elevations. Allergies Allergy/AdvReac Type Severity Reaction Status Date / Time No Known Allergies Allergy Unverified 05/19/20 10:33 Home Medications Medication Instructions Recorded Confirmed Type aspirin [Aspir-81] 81 mg PO DAILY@1500 05/19/20 01/08/21 History atorvastatin 40 mg PO DAILY@1500 05/19/20 01/08/21 History metoprolol tartrate 25 mg PO DAILY@1500 05/19/20 01/08/21 History omeprazole magnesium [Prilosec OTC] 20 mg PO DAILY PRN 01/08/21 01/08/21 History Patient History Medical History DVT (deep venous thrombosis) High cholesterol Hypothyroid NSTEMI (non-ST elevated myocardial infarction) Surgical History History of ventral hernia repair Stented coronary artery Social History Smoking Status: Never smoker Hx Alcohol Use: Yes Alcohol type: hard liquor Alcohol Intake Frequency: 2-4 x/Month Hx Substance Use: No Preferred Language: Danish Communication Ability: Effective Director Life Insurance Required: No Beliefs That Will Affect Care: None Current Living Situation: Significant Other Other Information That Helps Us Care for You: No Feels Safe at Home: Yes Assistive Devices: Oxygen - Continuous Review of Systems Review of Systems: Not obtained in the setting of emergent situation. Physical Exam Physical Exam: General: uncomfortable, anxious Eyes: Sclerae anicteric HENT: Mask in place Lungs: Clear to auscultation Cardiac: Regular rate and rhythm Abdomen: Soft, nontender Neuro: Nonfocal Psych: Alert orient x3, normal affect and mood Extremities/Vascular: -- 2+ radial bilaterally -- No edema Results & Data ([facility]) Vital Signs (Past 12 Hours) Vital Signs Temp Pulse Pulse Resp BP BP Pulse Ox 01/08/21 20:42 98.6 F 01/08/21 17:26 97.9 F 01/08/21 16:07 76 115/69 94 01/08/21 15:07 77 99/69 L 96 01/08/21 14:37 69 112/71 98 01/08/21 14:06 82 120/73 96 01/08/21 13:52 85 108/67 98 01/08/21 13:37 01/08/21 13:36 78 112/66 95 01/08/21 13:30 88 L 01/08/21 13:26 97.9 F 01/08/21 13:25 97.9 F 84 15 112/66 95 01/08/21 13:22 88 107/67 92 01/08/21 13:00 93 H 16 111/74 97 01/08/21 12:45 89 16 110/73 97 01/08/21 12:30 103 H 16 103/75 97 01/08/21 09:50 97.3 F L 72 18 146/84 H 99 Pulse Ox 01/08/21 20:42 01/08/21 17:26 01/08/21 16:07 01/08/21 15:07 01/08/21 14:37 01/08/21 14:06 01/08/21 13:52 01/08/21 13:37 96 01/08/21 13:36 01/08/21 13:30 01/08/21 13:26 01/08/21 13:25 01/08/21 13:22 01/08/21 13:00 01/08/21 12:45 01/08/21 12:30 01/08/21 09:50 PG Care Time/CCT Total # of Minutes Spent Total Time Spent with Patient: Total time spent is greater than 50% in coordination of care (as documented) at patient's floor/unit and/or counseling patient: Coding Level of Care Code 46617 Inpt Consult Level [address] elevation (STEMI) myocardial infarction I21.3 Involved coronary artery: unspecified coronary artery (1) ST elevation (STEMI) myocardial infarction Involved coronary artery: unspecified coronary artery Qualified Code(s): I21.3 - ST elevation (STEMI) myocardial infarction of unspecified site
[2021-01-08] MEDS: TICAGRELOR 90 MG TAB PO SCH (22:55)
[2021-01-09] MEDS: DOPamine / D5W 400 MG/250 ML BAG IV SCH (01:39)
[2021-01-09 05:08] LABS: Basophils # (auto) 0.01 K/uL (0-0.2); Basophils % (auto) 0.1 %; Eosinophils # (auto) 0.03 K/uL (0-0.5); Eosinophils % (auto) 0.3 %; Hematocrit (blood only) 39.1 % (42-52); Hemoglobin 13.4 g/dL (14.0-18.0); Immature Granulocytes # (auto) 0.02 K/uL (0.00-0.02); Immature Granulocytes % (auto) 0.2 %; Lymphocytes # (auto) 1.93 K/uL (1.2-3.4); Lymphocytes % (auto) 16.8 %; Mean Corpuscular Hemoglobin 28.8 pg (25-34); Mean Corpuscular Hgb Conc 34.3 g/dL (32-36); Mean Corpuscular Volume 83.9 fL (80-100); Mean Platelet Volume 8.8 fL (7.4-10.4); Monocytes # (auto) 1.03 K/uL (0.11-0.59); Neutrophils # (auto) 8.44 K/uL (1.4-6.5); Neutrophils % (auto) 73.6 %; Platelet Count 261 K/uL (130-400); RDW Coefficient of Variation 14.1 % (11.5-14.5); RDW Standard Deviation 43.5 fL (36.4-46.3); Red Blood Count 4.66 M/uL (4.7-6.1); White Blood Count 11.46 K/uL (4.8-10.8)
[2021-01-09 05:46] LABS: BUN Creatinine Ratio 13.6 (10-20); Blood Urea Nitrogen 13 mg/dl (7-18); Calcium 8.2 mg/dl (8.5-10.1); Carbon Dioxide 28 mmol/L (21-32); Chloride 106 mmol/L (98-107); Chol HDL Ratio 2; Cholesterol 119 mg/dl (0-200); Creatinine Clr Calc Pharmacy 97.1 ml/min; Est GFR (African American) 99.3; Est GFR (Non-African American) 85.7; Glucose 141 mg/dl (70-99); HDL Cholesterol 54 mg/dl; LDL Cholesterol Direct 50 mg/dl; Magnesium 2.1 mg/dl (1.8-2.4); Phosphorus 3.7 mg/dl (2.5-4.9); Sodium 137 mmol/L (136-145); Triglycerides 110 mg/dl (0-150); VLDL Cholesterol 22 mg/dl
[2021-01-09 06:12] LABS: Estimated Average Glucose 169 mg/dl; Hemoglobin A1C 7.5 % (4.5-5.6)
[2021-01-09] MEDS ORDERED: ATORVASTATIN 40 MG TAB PO SCH (09:00)
[2021-01-09] MEDS ORDERED: ASPIRIN 81 MG ECTAB PO SCH (09:00)
[2021-01-09] MEDS: METOPROLOL TARTRATE 25 MG TAB PO SCH ×2 (09:23→20:39)
[2021-01-09] MEDS: ASPIRIN 81 MG ECTAB PO SCH (09:23)
[2021-01-09] MEDS: PANTOprazole 40 MG TAB PO SCH (09:23)
[2021-01-09] MEDS: TICAGRELOR 90 MG TAB PO SCH ×2 (09:24→20:38)
[2021-01-09] MEDS: ATORVASTATIN 40 MG TAB PO SCH (09:25)
--- NOTE | 2021-01-09 10:53 | Critical Care Progress Note ---
Date of Service January 09, 2021 Assessment & Plan (1) ST elevation (STEMI) myocardial infarction: --Inferior wall MA s/p PCI with DESx2 to RCA (DESx1 in proximal-mid RCA, DESx1 in distal RCA in- stent thrombosis) proximal-mid RCA dissection and thrombus to proximal R-PDA during procedure - patient had transient hypotension requiring Dopamine Continue with DAPT, aspirin Brilinta Continue with statin, Lopressor started today. Patient takes omeprazole at home. We will give pantoprazole in the hospital Troponins peaked and now trending down 2D echo postprocedure did not show any signs of pericardial effusion on 12/11/2020 --New onset diabetes HbA1c 7.5 Diabetic education --History of DVT Stop Xarelto approximately 3 days ago --Hypertension Hold home medications --Prophylaxis VTE: IPC's GI: Protonix Lines: Peripheral Diet: Cardiac Plan: In/out: -334, urine output 2100 We will DC dopamine. Resume metoprolol. The patient's blood pressure is controlled could be sent out of the ICU. Cardiology to see the patient still. Please note the above document was generated using voice recognition software. It may contain grammatical, syntax or spelling errors.Any formal questions or concerns about the content, text or information contained within the body of this dictation should be directly addressed to the provider for clarification. (2) DVT prophylaxis: (3) Hypokalemia: Admission and Anticipated Discharge Date Admission Date: January 08, 2021 Subjective Patient seen and examined at bedside. No acute distress, no adverse events overnight. Patient did have some nausea and threw up once last night. Denies any chest pain, no shortness of breath, no dizziness, no diaphoresis, no headache. Tolerating diet. Patient was on 5 of dopamine at the time of examination Review of Systems Review of Systems: All systems reviewed & are unremarkable except as noted in Subjective Physical Exam Physical Exam: Constitutional: No acute distress HEENT: EOMI, PERRLA Respiratory system: Good air entry bilaterally, no wheeze, rhonchi, no crackles CVS: S1-S2 positive, no murmurs or gallops Abdomen: Soft, nontender, nondistended, positive bowel sounds x4 Extremities: +2 pulses bilaterally radialis/ dorsalis pedis, no cyanosis, no edema Neuro: Awake alert oriented x3 Psych: Normal mood and affect G/U: No [place] Skin: no rashes, warm and dry Lymphatic: no cervical or axillary lymphadenopathy Results & Data Results & Data ([facility]) Vital Signs (Past 12 Hours) Vital Signs Temp Pulse BP Pulse Ox Pulse Ox 01/09/21 10:12 85 93/62 L 96 01/09/21 10:00 88 95 01/09/21 09:12 71 120/77 93 01/09/21 09:00 70 97 01/09/21 08:12 62 124/78 94 01/09/21 08:00 36.9 C 72 94 97 01/09/21 07:12 66 116/67 93 01/09/21 07:00 65 92 01/09/21 06:42 36.9 C 01/09/21 06:12 63 92/58 L 93 01/09/21 06:00 63 93 01/09/21 05:12 64 107/66 93 01/09/21 05:00 66 94 01/09/21 04:13 64 93 01/09/21 04:12 59 L 109/71 93 01/09/21 04:00 64 90 01/09/21 03:12 72 113/65 93 01/09/21 03:00 61 94 01/09/21 02:12 60 115/53 L 88 L 01/09/21 02:00 66 92 01/09/21 01:58 37.0 C 01/09/21 01:13 67 93 01/09/21 01:12 77 93/64 L 94 01/09/21 01:00 61 93 01/09/21 00:48 66 01/09/21 00:20 62 103/55 L 92 01/09/21 00:12 59 L 93 01/09/21 00:00 66 91 01/08/21 23:12 65 110/75 94 01/08/21 23:00 95 H 90 01/09/21 04:51 01/09/21 04:51 Coding Level of Care Code 40947 Subseq Hosp Care Lvl [address] elevation (STEMI) myocardial infarction I21.3 Involved coronary artery: unspecified coronary artery DVT prophylaxis Z29.9 Hypokalemia E87.6 (1) ST elevation (STEMI) myocardial infarction Involved coronary artery: unspecified coronary artery Qualified Code(s): I21.3 - ST elevation (STEMI) myocardial infarction of unspecified site
--- NOTE | 2021-01-09 11:39 | Cardiology Progress Note ---
Date of Service January 09, 2021 Assessment & Plan (1) ST elevation (STEMI) myocardial infarction: -- post PCI with MARBIN x 2 to RCA 2. Moderate non-culprit CAD 3. Preserved LV function 4. Type 2 DM 5. Hypothyroidism 6. History of provoked DVT Chest pain free. Troponin peaked. LV function preserved on echo. No signs of heart failure. No access site complications. Blood pressure stable of pressors. -- Continue DAPT with ASA/Ticagrelor. Recently completed course of Xarelto. -- Tolerating low dose metoprolol. Titrate up as able. Start low dose MARIANNE as BP allows. -- Continue current statin -- DM education and PCP f/up. -- OK to transfer to telemetry today. -- Likely discharge tomorrow. Appreciate hospital medicine, ICU team care. Admission and Anticipated Discharge Date Admission Date: January 08, 2021 Subjective Feeling well today. No chest pain. Dopamine off this morning. Telemetry- brief NSVT yesterday evening. Review of Systems Review of Systems: All systems reviewed & are unremarkable except as noted in HPI & below Physical Exam Physical Exam: General: comfortable Eyes: Sclerae anicteric HENT: Mask in place Lungs: Clear to auscultation Cardiac: Regular rate and rhythm Abdomen: Soft, nontender Neuro: Nonfocal Psych: Alert orient x3, normal affect and mood Extremities/Vascular: --2+ right radial pulse, no hematoma/ecchymosis; normal sensation -- No edema Results & Data ([facility]) Vital Signs (Past 12 Hours) Vital Signs Temp Pulse BP Pulse Ox Pulse Ox 01/09/21 10:12 85 93/62 L 96 01/09/21 10:00 88 95 01/09/21 09:12 71 120/77 93 01/09/21 09:00 70 97 01/09/21 08:12 62 124/78 94 01/09/21 08:00 98.4 F 72 94 97 01/09/21 07:12 66 116/67 93 01/09/21 07:00 65 92 01/09/21 06:42 98.4 F 01/09/21 06:12 63 92/58 L 93 01/09/21 06:00 63 93 01/09/21 05:12 64 107/66 93 01/09/21 05:00 66 94 01/09/21 04:13 64 93 01/09/21 04:12 59 L 109/71 93 01/09/21 04:00 64 90 01/09/21 03:12 72 113/65 93 01/09/21 03:00 61 94 01/09/21 02:12 60 115/53 L 88 L 01/09/21 02:00 66 92 01/09/21 01:58 98.6 F 01/09/21 01:13 67 93 01/09/21 01:12 77 93/64 L 94 01/09/21 01:00 61 93 01/09/21 00:48 66 01/09/21 00:20 62 103/55 L 92 01/09/21 00:12 59 L 93 01/09/21 00:00 66 91 PG Care Time/CCT Total # of Minutes Spent Total Time Spent with Patient: Total time spent is greater than 50% in coordination of care (as documented) at patient's floor/unit and/or counseling patient: Coding Level of Care Code 67028 Subseq Hosp Care Lvl [address] elevation (STEMI) myocardial infarction I21.3 Involved coronary artery: unspecified coronary artery (1) ST elevation (STEMI) myocardial infarction Involved coronary artery: unspecified coronary artery Qualified Code(s): I21.3 - ST elevation (STEMI) myocardial infarction of unspecified site
[2021-01-10] MEDS: ATORVASTATIN 40 MG TAB PO SCH (08:12)
[2021-01-10] MEDS: METOPROLOL TARTRATE 25 MG TAB PO SCH (08:12)
[2021-01-10] MEDS: TICAGRELOR 90 MG TAB PO SCH (08:12)
[2021-01-10] MEDS: ASPIRIN 81 MG ECTAB PO SCH (08:13)
[2021-01-10] MEDS: PANTOprazole 40 MG TAB PO SCH (08:13)
[2021-01-10 08:25] LABS: Hematocrit (blood only) 43.6 % (42-52); Hemoglobin 14.5 g/dL (14.0-18.0); Mean Corpuscular Hemoglobin 28.3 pg (25-34); Mean Corpuscular Hgb Conc 33.3 g/dL (32-36); Mean Corpuscular Volume 85.2 fL (80-100); Mean Platelet Volume 9.3 fL (7.4-10.4); Platelet Count 236 K/uL (130-400); RDW Coefficient of Variation 14.3 % (11.5-14.5); RDW Standard Deviation 44.9 fL (36.4-46.3); Red Blood Count 5.12 M/uL (4.7-6.1); White Blood Count 8.62 K/uL (4.8-10.8)
[2021-01-10 08:51] LABS: BUN Creatinine Ratio 13.2 (10-20); Calcium 9.3 mg/dl (8.5-10.1); Creatinine Clr Calc Pharmacy 89.6 ml/min; Est GFR (African American) 91.3; Est GFR (Non-African American) 78.8; Potassium 3.7 mmol/L (3.5-5.1)
--- NOTE | 2021-01-10 11:05 | Cardiology Progress Note ---
Date of Service January 10, 2021 Assessment & Plan (1) ST elevation (STEMI) myocardial infarction: -acute inferior wall [place] at time of presentation. -post PCI with MARBIN x2 to RCA. -remains asymptomatic. -continue dual anti-platelet therapy x1 year -continue metoprolol tartrate and atorvastatin. -would initiate low-dose lisinopril. -stable for hospital discharge today. 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 -will have our in-home cardiac rehab team contact him on Tuesday. (2) CAD (coronary artery disease): -nonobstructive disease in the left coronary system. -50-60% proximal LAD in-stent restenosis. -40% mid LCx stenosis. (3) Essential hypertension: -adequate control on current regimen. (4) Hypercholesterolemia: -continue atorvastatin. Admission and Anticipated Discharge Date Admission Date: January 08, 2021 Subjective The patient is resting comfortably in bedside chair without complaints of chest pain or dyspnea. He is anxious for hospital discharge. Physical Exam Physical Exam: In general is well-developed well-nourished white male no acute distress. HEENT exam is negative. Neck is supple with full carotid upstrokes. No carotid bruits. Jugular venous pressure is flat at 90. There is no thyromegaly. Cardiovascular exam reveals a regular rhythm with a normal S1 and S2. No S3, S4, or murmurs are noted. Lungs are clear without rales, rhonchi or wheezes. Abdomen is soft and nontender without bruits. Extremities note intact radial artery pulses bilaterally. Right wrist dressing is dry. Results & Data ([facility]) Vital Signs (Past 12 Hours) Vital Signs Temp Pulse Pulse Resp BP Pulse Ox 01/10/21 08:00 86 01/10/21 07:24 36.9 C 76 18 128/81 96 01/10/21 05:04 37.2 C 80 20 112/70 96 01/10/21 00:56 37.1 C 83 19 107/66 97 Diagnostic Findings cardiac monitor technician is benign. PG Care Time/CCT Total # of Minutes Spent Total Time Spent with Patient: Total time spent is greater than 50% in coordination of care (as documented) at patient's floor/unit and/or counseling patient: Coding Level of Care Code 85794 Subseq Hosp Care Lvl [address] elevation (STEMI) myocardial infarction I21.3 Involved coronary artery: unspecified coronary artery CAD (coronary artery disease) I25.10 Essential hypertension I10 Hypercholesterolemia E78.00 (1) ST elevation (STEMI) myocardial infarction Involved coronary artery: unspecified coronary artery Qualified Code(s): I21.3 - ST elevation (STEMI) myocardial infarction of unspecified site
--- NOTE | 2021-01-10 11:36 | Discharge Summary ---
Date of Service January 10, 2021 Principal Diagnosis STEMI Discharge Exam In general is well-developed well-nourished white male no acute distress. HEENT exam is negative. Neck is supple with full carotid upstrokes. No carotid bruits. Jugular venous pressure is flat at 90. There is no thyromegaly. Cardiovascular exam reveals a regular rhythm with a normal S1 and S2. No S3, S4, or murmurs are noted. Lungs are clear without rales, rhonchi or wheezes. Abdomen is soft and nontender without bruits. Extremities note intact radial artery pulses bilaterally. Right wrist dressing is dry. Discharge Data Allergies Allergy/AdvReac Type Severity Reaction Status Date / Time No Known Allergies Allergy Unverified 05/19/20 10:33 Consultations 01/08/21 12:45 Consult Cardiac Rehabilitation Routine Consult Environmental Officer Routine 01/08/21 13:37 Consult Cardiology Routine Consult Environmental Officer Routine Procedures Performed Operation Date: 01/08/21 10:00 Actual Procedures p Aspiration/PCI w/MARBIN for Stemi - Ld Busby MD s Cath, Left with Cors and Vent - Ld Busby MD s Cineradiography w/Routine Exam - Ld Busby MD s IVUS Coronary Single Vessel - Ld Busby MD Ordered Studies 01/08/21 10:07 CL Cath Imgs for PACS use only Stat 01/08/21 14:32 CL IVUS Coronary Single Vessel Routine Diabetes Follow up Diabetes Follow-up Needed for Newly Diagnosed Diabetes Hospital Course (1) ST elevation (STEMI) myocardial infarction: -acute inferior wall [place] at time of presentation. -post PCI with MARBIN x2 to RCA. -remains asymptomatic. -continue dual anti-platelet therapy x1 year -continue metoprolol tartrate and atorvastatin. -would initiate low-dose lisinopril. -stable for hospital discharge today. 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 -will have our in-home cardiac rehab team contact him on Tuesday. (2) CAD (coronary artery disease): -nonobstructive disease in the left coronary system. -50-60% proximal LAD in-stent restenosis. -40% mid LCx stenosis. (3) Essential hypertension: -adequate control on current regimen. (4) Hypercholesterolemia: -continue atorvastatin. Total Time Total Time Spent Total Time Spent (In Minutes): 45 min Discharge Plan Discharge Items Patient Disposition: Home - Self-Care Reason For Visit: STEMI Discharge Diagnosis: STEMI Condition on Discharge: Good Activity: Resume your previous activity Activity Comment: After 1 week off Lifting: No more than 10 pounds Lifting Comment: In right arm/wrist for 2 more days (01/12/2021). Exercise Comment: Home cardiac rehab Non-emergency contact: Primary Care Provider and [employer] non-emergency contact if: your symptoms worsen, your pain is not controlled and your pain is worsening Follow-up/Referrals: PCP,NO [Primary Care Provider] - Diet: Heart Healthy Addtl Attending Provider Instructions: Mr. Ramirez, You were admitted for a heart attack. You can resume work in 1 week. Our office will contact you with instructions on home cardiac rehab. No lifting in the right arm/wrist more than 10 lbs for 2 more days. Please see your taping foreman in [place] within 1 week. Pending Studies at Discharge: No Stand-Alone Forms: My [employer]Take, Smoking Cessation Medications and DC Order Prescriptions: New atorvastatin 40 mg Tablet 80 mg PO QAM Qty: 30 RF: 0 nitroglycerin [Nitrostat] 0.4 mg Tablet, Sublingual 0.4 mg sublingual PRN PRN (Reason: chest pain) Qty: 30 RF: 0 metoprolol tartrate 25 mg Tablet 12.5 mg PO BID Qty: 30 RF: 0 Brilinta 90 mg Tablet 90 mg PO BID Qty: 60 RF: 0 lisinopril 2.5 mg tablet 2.5 mg PO DAILY Qty: 30 RF: 0 Continued aspirin [Aspir-81] 81 mg Tablet,Delayed Release (Dr/Ec) 81 mg PO DAILY@1500 RF: 0 omeprazole magnesium [Prilosec OTC] 20 mg Tablet,Delayed Release (Dr/Ec) 20 mg PO DAILY PRN (Reason: Heartburn) RF: 0 Discontinued atorvastatin 40 mg Tablet 40 mg PO DAILY@1500 RF: 0 metoprolol tartrate 25 mg Tablet 25 mg PO DAILY@1500 RF: 0 Discharge Orders: Discharge Order (Routine); Ordered 01/10/21 Ordered By: Parker Hassan Admission Data Admit Date/Time: 01/08/21 12:45 Attending Provider: Ld Busby Admit Provider: Rivera Duarte Primary Care Provider: PCP,NO Other Providers: Paul Hull ; Ld Busby Coding Level of Care Code D/C Day Management >[address] elevation (STEMI) myocardial infarction I21.3 Involved coronary artery: unspecified coronary artery CAD (coronary artery disease) I25.10 Essential hypertension I10 Hypercholesterolemia E78.00
== END 2021-01-10 13:10 | disposition home or self-care (01) | DRG 247 ==
LOC: ED 09:47 → 1E 10:20 → CC 10:20 → 1E 12:45 → 2S 01-09 14:27